=== PATIENT | male | born 1995 | race Caucasian/White ===

== ENCOUNTER 2017-07-31 10:00 | Outpatient (RCR) | payer BC ==
[2015-11-17 09:35] VITALS: BP 128/68
[~2017-07-31 10:00] MED LIST: CEPHALEXIN500 M2 PO; DAYQUIL COLD/FL1 SGL PO; MUCINEX FAST MA PO; NIGHT-TIME COL300 ML
== END 2017-07-31 10:30 | disposition home or self-care (01) ==
LOC: PT 10:00
DX: M75.81 Other shoulder lesions, right shoulder (principal)

== ENCOUNTER 2018-01-06 09:00 | Outpatient (RCR) | payer BC ==
[2015-11-17 09:35] VITALS: BP 128/68
== END 2018-01-06 09:30 | disposition home or self-care (01) ==
LOC: PT 09:00
DX: S42.024D Nondisplaced fracture of shaft of right clavicle, subsequent encounter for fracture with routine healing (principal); S32.401D Unspecified fracture of right acetabulum, subsequent encounter for fracture with routine healing; V49.9XXD Car occupant (driver) (passenger) injured in unspecified traffic accident, subsequent encounter

== ENCOUNTER → 2018-01-29 | Outpatient (CLI) | payer BC ==
[2015-11-17 09:35] VITALS: BP 128/68
== END ==
LOC: RAD 14:28
DX: S22.41XD Multiple fractures of ribs, right side, subsequent encounter for fracture with routine healing (principal); S42.024D Nondisplaced fracture of shaft of right clavicle, subsequent encounter for fracture with routine healing; Z98.890 Other specified postprocedural states; Z96.89 Presence of other specified functional implants

== ENCOUNTER → 2018-02-27 | Outpatient (CLI) | payer BC ==
[2015-11-17 09:35] VITALS: BP 128/68
== END ==
LOC: RAD 15:00
DX: Z09 Encounter for follow-up examination after completed treatment for conditions other than malignant neoplasm (principal); S22.41XD Multiple fractures of ribs, right side, subsequent encounter for fracture with routine healing

== ENCOUNTER → 2022-09-25 | Outpatient (CLI) | payer BC | LOC: LAB 16:12 | DX: F90.9 Attention-deficit hyperactivity disorder, unspecified type (principal) ==